=== PATIENT | female | born 1990 | race African-American/Black ===

== ENCOUNTER 2016-05-26 21:00 | Emergency (ER) | payer OTHER ==
[2016-05-26 21:17] VITALS: BP 117/62
[2016-05-26] MEDS ORDERED: Ibuprofen 800 MG Tab PO ONE (21:21)
--- NOTE | 2016-05-26 21:24 | EDM.PDOC ---
ED HPI GI/ABDOMINAL - General Chief Complaint: Abdominal Pain Stated Complaint: HERNIA Time Seen by Provider: 05/26/16 21:19 Source: Reports: Patient History Limitations: Reports: No limitations - History of Present Illness INITIAL COMMENTS - FREE TEXT/NARRATIVE: c/o abd pain h/o c/s x 2 with lower Pfannenstiel incision, moved to [place] from [place], [place] 1y ago, not seen an MD locally says she has a hernia in her upper abd that was "sticking out", her daughter jumped on it, now it is gone tearful, yet has normal PE says she is afraid she will get more anxious - Related Data Allergies/ADRs: Allergies Allergy/AdvReac Type Severity Reaction Status Date / Time No Known Allergies Allergy Verified 05/26/16 21:17 Home Meds: Home Meds Albuterol Sulfate [Albuterol Sulfate HFA] 1 - 2 puff IH Q6HR #1 hfa.aer.ad 07/12 [Rx] Vit#42/FA Cmb#6 [Prena1 Chew Tablet] 1 mg PO BEDTIME 07/12/13 [History] Social & Family History - Tobacco Use Years of Tobacco use: 2 - Alcohol Use Days Per Week of Alcohol Use: 0 - Recreational Drug Use Recreational Drug Use: No ED ROS GENERAL - Review of Systems Review Of Systems: See Below Constitutional: Reports: no symptoms HEENT: Reports: No symptoms Respiratory: Reports: No Symptoms Endocrine: Reports: no symptoms GI/Abdominal: Reports: Abdominal pain : Reports: no symptoms Musculoskeletal: Reports: no symptoms Skin: Reports: no symptoms Neurological: Reports: No Symptoms Psychiatric: Reports: No symptoms Hematologic/Lymphatic: Reports: no symptoms Immunologic: Reports: no symptoms ED EXAM, GI/ABD - Physical Exam Exam: See Below Exam Limited By: No limitations General Appearance: alert, WD/WN, no apparent distress GI/Abdominal: other (soft, inc'd adipose tissue, stretch figueredo, no scars in upper abd, no swell, no ecchymosis, no defect in muscle, nl contour, no localized tender) Course - Vital Signs Last Recorded V/S: Last Vital Signs Temp 36.3 C 05/26/16 21:11 Pulse 70 05/26/16 21:11 Resp 14 05/26/16 21:11 BP 117/62 05/26/16 21:11 Pulse Ox 100 04/17/17 21:11 Departure - Departure Time of Disposition: 21:21 Disposition: Home, Self-Care 01 Condition: good Clinical Impression: Abdominal pain Forms: ED Department Discharge Additional Instructions: The muscle is intact. While there may be swelling of the skin or even the adipose layer on occasion, the abdominal muscle is healthy. You may take ibuprofen 200 mg 3 tabs 4 times a day for 2 days as needed for pain and inflammation. Use heat for 15 minutes 4 times a day for 2 days as needed for pain. See a local physician in 2 days for followup and to establish care.
== END 2016-05-26 21:29 | disposition home or self-care (01) ==
LOC: FB.ED 21:00
DX: R10.9 Unspecified abdominal pain (principal)
CPT/HCPCS: 99282; A9270

== ENCOUNTER 2016-11-15 20:48 | Emergency (ER) | payer OTHER ==
[2016-11-15] MEDS ORDERED: Sodium Chloride 0.9% 1,000 ML IV ONE (21:28)
[2016-11-15] MEDS ORDERED: diphenhydrAMINE 50 MG/ML SDV IVPUSH ONE (21:28)
[2016-11-15] MEDS ORDERED: Hydrocortisone Sodium Succinate 100 MG/2 ML SDV IVPUSH ONE (21:29)
[2016-11-15] MEDS ORDERED: Pantoprazole 40 MG Vial IVPUSH ONE (21:29)
[2016-11-15] MEDS ORDERED: hydrOXYzine HCl 25 MG Tab PO ONE (21:30)
[2016-11-15] MEDS ORDERED: methylPREDNISolone Sodium Succinate 125 MG/2 ML SDV ONE (21:40)
[2016-11-15] MEDS ORDERED: Sodium Chloride 0.9% 10 ML Syringe FLUSH PRN (22:39)
[2016-11-15] MEDS ORDERED: EPINEPHrine 1 MG/ML SDV SUBCUT ONE (22:56)
[2016-11-15 23:09] VITALS: BP 141/90
--- NOTE | 2016-11-18 10:24 | ER ---
DATE SEEN: 11/15/2016 TIME SEEN: The patient was seen at 2105 hours. HISTORY OF PRESENT ILLNESS: The patient comes in because she is itching. Something has triggered her itching. She had shrimp at home and feels that is the cause of it. The patient denies shortness of breath. Denies fullness in her throat. Denies abdominal pain, lightheadedness, dizziness, or diaphoresis. PAST MEDICAL HISTORY: The patient has had an umbilical hernia before. She also is obese. Denies asthma. ALLERGIES: No known allergies. REVIEW OF SYSTEMS: HEENT: Negative. CARDIORESPIRATORY: Negative. No history of wheezing, asthma, shortness of breath, or pneumonia. GI: No blood in the stool, black tarry stool, change in bowels, colitis, or Crohn's disease. : Negative. MUSCULOSKELETAL: Negative. No fibromyalgia. NEUROLOGIC: Negative. PHYSICAL EXAMINATION: VITAL SIGNS: Blood pressure 112/50, heart rate 76, respirations 16, oxygen saturation 96%, and temperature is 36.6 degrees centigrade. The patient is 108.8 kg with a BMI of 45.3. SKIN: The patient is constantly itching her forearms. Less itching on abdomen, shoulders, and face, but she has generalized facial pruritus with papules on her face and chest and hives on her chest and more on her forearms. HEENT: PERRLA intact. Pharynx without edema and without hyperemia. No angioedema. Gag in place. NECK: No tracheal deviation. No thyromegaly. LUNGS: Clear to auscultation without rales. No rhonchi. No wheezes. Good air exchange is noted. HEART: S1 and S2. No tachycardia. ABDOMEN: Soft. No guarding. No abdominal discomfort. There is mild increased abdominal girth. EXTREMITIES: Lower extremities without edema. No tenderness of vascular structure. Deep tendon reflexes hypoactive upper and lower extremities, but present. NEUROLOGIC: Cranial nerves 2 through 12 intact. Speech appropriate. No compromise in phonation and speech formation. PLAN: IV Solu-Medrol 125 mg, Benadryl 50 mg, 1:1000, 0.3 mL Epinephrine, Atarax 25 mg p.o., Pantoprazole 40 mg IV, and hydroxyzine 25 mg p.o. Within 15 to 20 minutes, the patient's status markedly improved. She was not itching. She is talking and does not have any problem with communication. No change in lung status. ASSESSMENT: Allergic reaction, probably shrimp, resolving hives. The patient has Medrol Dosepak for allergies and Benadryl and hydroxyzine to diminish the itching if it is recurrent. She has Solu-Medrol also. No topical steroids given. /[id number] DEEPTHI/MARICEL
== END 2016-11-15 23:14 | disposition home or self-care (01) ==
LOC: FB.ED 20:48
DX: T78.40XA Allergy, unspecified, initial encounter (principal)
CPT/HCPCS: 96361; 96372; 96374; 96375; 99283; A9270; C9113; J0171; J1200; J1720; J7040; J7050

== ENCOUNTER 2018-03-03 17:31 | Emergency (ER) | payer MEDICAID ==
[2018-03-03] MEDS ORDERED: Sodium Chloride 0.9% 1,000 ML IV ONE (18:29)
[2018-03-03] MEDS ORDERED: Ketorolac 30 MG/ML SDV IVPUSH ONE (18:29)
[2018-03-03] MEDS ORDERED: Morphine 2 MG/ML Syringe IVPUSH ONE (18:29)
[2018-03-03] MEDS ORDERED: Ondansetron 4 MG/2 ML SDV IVPUSH ONE (18:29)
--- NOTE | 2018-03-03 18:36 | EDM.PDOC ---
ED HPI GENERAL MEDICAL PROBLEM - General Chief Complaint: Abdominal Pain Stated Complaint: ABD PAIN Time Seen by Provider: 03/03/18 18:15 Source of Information: Reports: Patient History Limitations: Reports: No Limitations - History of Present Illness INITIAL COMMENTS - FREE TEXT/NARRATIVE: c/o abd pain x 1h not eaten bfast or lunch, slight nausea today, went to [employer] at 4p, at 4:30p she had pain above her umbilicus, went to bathroom and had emesis pain persisted, sent here says she has an umbilical hernia that she has pushed back in previously, unable to do so now thinks it is an umbilical hernia from what she has read in the internet altho umbilicus appears WNL, says she has told her PCP Dr Blair about this altho has not had a bulge when in his office no prior abd surgery no f/c/d points to pain above umbilicus Middle Abdomen Pain Score (Numeric/FACES): 8 - Related Data Allergies Allergy/AdvReac Type Severity Reaction Status Date / Time No Known Allergies Allergy Verified 03/03/18 18:04 Home Meds: Home Meds NK [No Known Home Meds] 03/03/18 [History] Past Medical History Respiratory History: Reports: Asthma Gastrointestinal History: Reports: Other (See Below) Other Gastrointestinal History: c-sections Genitourinary History: Reports: None RESIDENTIAL [employer]IST History: Reports: Other [employer]IDENTIAL [employer]IST History: Psychiatric History: Reports: Anxiety Endocrine/Metabolic History: Reports: Obesity/BMI 30+ Hematologic History: Reports: Anemia - Infectious Disease History Infectious Disease History: Reports: Chicken Pox - Past Surgical History GI Surgical History: Reports: Hernia, Abdominal Female Surgical History: Reports: Section Other Female Surgeries/Procedures: CS x 3 Social & Family History - Family History Family Medical History: Noncontributory - Tobacco Use Smoking Status *Q: Current Every Day Smoker Years of Tobacco use: 5 Packs/Tins Daily: 0.5 - Caffeine Use Caffeine Use: Reports: Coffee, Energy Drinks, Soda, Tea - Recreational Drug Use Recreational Drug Use: No ED ROS GENERAL - Review of Systems Review Of Systems: See Below Constitutional: Reports: No Symptoms HEENT: Reports: No Symptoms Respiratory: Reports: No Symptoms Cardiovascular: Reports: No Symptoms Endocrine: Reports: No Symptoms GI/Abdominal: Reports: Abdominal Pain, Nausea, Vomiting : Reports: No Symptoms Musculoskeletal: Reports: No Symptoms Skin: Reports: No Symptoms Neurological: Reports: No Symptoms Psychiatric: Reports: No Symptoms Hematologic/Lymphatic: Reports: No Symptoms Immunologic: Reports: No Symptoms ED EXAM, GI/ABD - Physical Exam Exam: See Below Exam Limited By: No Limitations General Appearance: Alert, WD/WN, Moderate Distress, Other (tearful) Ears: Normal External Exam Nose: Normal Inspection, Normal Mucosa, No Blood Throat/Mouth: Normal Inspection, Normal Lips, Normal Voice, No Airway Compromise Head: Atraumatic, Normocephalic Neck: Normal Inspection, Supple, Non-Tender, Full Range of Motion. No: Lymphadenopathy (R), Lymphadenopathy (L) Respiratory/Chest: No Respiratory Distress, Lungs Clear, Normal Breath Sounds, Chest Non-Tender Cardiovascular: Regular Rate, Rhythm, No Edema, No Gallop, No Murmur GI/Abdominal Exam: Other (mild subc fullness of 10 x 10 x 5 cm above umbilicus, not hard, has 1-2+ tender, BS x 4, no rushes, perhaps a little dec'd, no guard, no rebound, umbilicus is WNL without bulge or tender or red) Neurological: Alert, Oriented, CN II-XII Intact, Normal Cognition, No Motor/ Sensory Deficits Psychiatric: Tearful Skin Exam: Warm, Dry, Intact, Normal Color, No Rash Lymphatic: No Adenopathy Course - Vital Signs Last Recorded V/S: Last Vital Signs Temp 36.9 C 03/03/18 18:00 Pulse 64 03/03/18 18:00 Resp 18 03/03/18 18:00 BP 132/77 03/03/18 18:00 Pulse Ox 100 03/03/18 18:00 - Orders/Labs/Meds Orders: Active Orders 24 hr Category Date Time Status UA W/MICROSCOPIC [URIN] Stat Lab 03/03/18 19:35 Received Labs: Laboratory Tests 03/03/18 03/03/18 03/03/18 Range/Units 18:35 18:35 18:35 WBC 8.9 (4.5-12.0) X10-3/uL RBC 4.24 (3.23-5.20) x10(6)uL Hgb 12.7 (11.5-15.5) g/dL Hct 36.4 (30.0-51.3) % MCV 86.0 (80-96) fL MCH 30.0 (27.7-33.6) pg MCHC 34.8 (32.2-35.4) g/dL RDW 12.5 (11.5-15.5) % Plt Count 384 H (125-369) X10(3)uL MPV 7.8 (7.4-10.4) fL Add Manual Diff Yes Neutrophils % (Manual) 73 (46-82) % Band Neutrophils % 1 (0-6) % Lymphocytes % (Manual) 24 (13-37) % Monocytes % (Manual) 2 L (4-12) % Sodium 137 (135-145) mmol/L Potassium 3.8 (3.5-5.3) mmol/L Chloride 105 (100-110) mmol/L Carbon Dioxide 28 (21-32) mmol/L BUN 8 (7-18) mg/dL Creatinine 0.8 (0.55-1.02) mg/dL Est Cr Clr Drug Dosing 80.41 mL/min Estimated GFR (MDRD) > 60 (>60) BUN/Creatinine Ratio 10.0 (9-20) Glucose 106 (80-116) mg/dL Calcium 8.9 (8.6-10.2) mg/dL Total Bilirubin 0.3 (0.1-1.3) mg/dL AST 14 (5-25) IU/L ALT 20 (12-36) U/L Alkaline Phosphatase 77 (56-112) IU/L C-Reactive Protein 2.5 H (0.5-0.9) mg/dL Total Protein 7.7 (6.0-8.0) g/dL Albumin 3.3 L (3.5-5.2) g/dL Globulin 4.4 g/dL Albumin/Globulin Ratio 0.8 Amylase 65 (25-115) U/L Urine HCG, Qual (NEGATIVE) 03/03/18 Range/Units 19:35 WBC (4.5-12.0) X10-3/uL RBC (3.23-5.20) x10(6)uL Hgb (11.5-15.5) g/dL Hct (30.0-51.3) % MCV (80-96) fL MCH (27.7-33.6) pg MCHC (32.2-35.4) g/dL RDW (11.5-15.5) % Plt Count (125-369) X10(3)uL MPV (7.4-10.4) fL Add Manual Diff Neutrophils % (Manual) (46-82) % Band Neutrophils % (0-6) % Lymphocytes % (Manual) (13-37) % Monocytes % (Manual) (4-12) % Sodium (135-145) mmol/L Potassium (3.5-5.3) mmol/L Chloride (100-110) mmol/L Carbon Dioxide (21-32) mmol/L BUN (7-18) mg/dL Creatinine (0.55-1.02) mg/dL Est Cr Clr Drug Dosing mL/min Estimated GFR (MDRD) (>60) BUN/Creatinine Ratio (9-20) Glucose (80-116) mg/dL Calcium (8.6-10.2) mg/dL Total Bilirubin (0.1-1.3) mg/dL AST (5-25) IU/L ALT (12-36) U/L Alkaline Phosphatase (56-112) IU/L C-Reactive Protein (0.5-0.9) mg/dL Total Protein (6.0-8.0) g/dL Albumin (3.5-5.2) g/dL Globulin g/dL Albumin/Globulin Ratio Amylase (25-115) U/L Urine HCG, Qual Negative (NEGATIVE) Meds: Medications Discontinued Medications Generic Name Dose Route Start Last Admin Trade Name Freq PRN Reason Stop Dose Admin Sodium Chloride 1,000 mls @ 999 mls/hr 03/03/18 18:29 03/03/18 19:05 Normal Saline IV 03/03/18 19:29 999 mls/hr .BOLUS ONE Administration Ketorolac Tromethamine 30 mg 03/03/18 18:29 03/03/18 19:05 Toradol IVPUSH 03/03/18 18:30 30 mg ONETIME ONE Administration Morphine Sulfate 2 mg 03/03/18 18:29 03/03/18 19:11 Morphine IVPUSH 03/03/18 18:30 2 mg ONETIME ONE Administration Ondansetron HCl 4 mg 03/03/18 18:29 03/03/18 19:06 Zofran IVPUSH 03/03/18 18:30 4 mg ONETIME ONE Administration - Re-Assessments/Exams Free Text/Narrative Re-Assessment/Exam: 03/03/18 19:55 CRP 2.5 for unclear reason, ventral hernia was successfully reduced, appeared to be a ventral hernia and not an umbilical hernia pt reports that it occurred after 2 vaginal deliveries she was hoping that it would go away because it was small, today however was the worst pain and largest size pt would like to avoid surgery altho advised that she would need surgery to keep it from getting bigger and bigger, she did agree reluctantly to see a surgeon she understands that she needs to wear an abdominal binder when working given one from here in ED that it is one foot wide, will have her see if she can get a larger one from medical supply store Departure - Departure Time of Disposition: 19:58 Disposition: Home, Self-Care 01 Condition: Good Clinical Impression: Ventral hernia - Discharge Information *PRESCRIPTION DRUG MONITORING PROGRAM REVIEWED*: Not Applicable *COPY OF PRESCRIPTION DRUG MONITORING REPORT IN PATIENT IVA: Not Applicable Instructions: Ventral Hernia Referrals: Milo Blair MD [Primary Care Provider] - Forms: ED Department Discharge, ED Return to Work/School Form Additional Instructions: While you may have an umbilical hernia that does extent to the skin, it is more likely that you have a ventral hernia, which is separation of the abdominal wall in the midline. Unfortunately, the separation or hole will not heal itself and needs to be closed surgically as it will only continue to get bigger. See a surgeon in the next week for further evaluation. Wear an abdominal binder when you are working. For discomfort, you may take ibuprofen 200 mg 4 tabs 3 times a day as needed. However, if the bulge comes back and you have pain, you will need to come back to the Emergency Department. - My Orders Last 24 Hours: My Active Orders 03/03/18 19:35 UA W/MICROSCOPIC [URIN] Stat - Assessment/Plan Last 24 Hours: My Active Orders 03/03/18 19:35 UA W/MICROSCOPIC [URIN] Stat
[2018-03-03 21:01] VITALS: BP 125/65
== END 2018-03-03 20:15 | disposition home or self-care (01) ==
LOC: FB.ED 17:31
DX: K43.9 Ventral hernia without obstruction or gangrene (principal); F17.210 Nicotine dependence, cigarettes, uncomplicated
CPT/HCPCS: 36415; 80053; 81001; 81025; 82150; 85025; 86140; 96361; 96374; 96375; 99284; J1885; J2270; J2405; J7030

== ENCOUNTER 2018-03-16 06:45 | Day surgery (SDC) | payer MEDICAID ==
[~2018-03-16 06:45] MED LIST: Lactated Ringers 1,000 ML IV SCH
[2018-03-16] MEDS ORDERED: Ondansetron 4 MG/2 ML SDV IVPUSH ONE (06:46)
[2018-03-16] MEDS ORDERED: Ketorolac 30 MG/ML SDV IVPUSH ONE (06:46)
[2018-03-16] MEDS ORDERED: HYDROmorphone 2 MG/ML SDV IV ONE (06:46)
[2018-03-16] MEDS ORDERED: Propofol 200 MG/20 ML SDV IV ONE (06:46)
[2018-03-16] MEDS ORDERED: Midazolam 1 MG/ML 2 ML SDV IV ONE (06:46)
[2018-03-16] MEDS ORDERED: Lactated Ringers 1,000 ML IV ONE (06:46)
[2018-03-16] MEDS ORDERED: fentaNYL 100 MCG/2 ML SDV IV ONE (06:46)
[2018-03-16] MEDS ORDERED: Rocuronium 100 MG/10 ML MDV IV ONE (06:46)
[2018-03-16] MEDS ORDERED: Bupivacaine 0.5% 30 ML SDV ONE (08:20)
[2018-03-16] MEDS ORDERED: Lidocaine 1% with EPINEPHrine 1:100,000 20 ML MDV ONE (08:20)
[2018-03-16] MEDS ORDERED: Acetaminophen/HYDROcodone 325-5 MG Tab PO PRN (08:49)
--- NOTE | 2018-03-16 08:58 | PCM.OPNOTE ---
- General Post-Op/Procedure Note Date of Surgery/Procedure: 03/16/18 Operative Procedure(s): ventral hernia repair with mesh Findings: 2 cm defect midline Pre Op Diagnosis: ventral hernia without obstruction or gangrene Post-Op Diagnosis: Same Anesthesia Technique: General ET Tube, Local (7 ml 1 % lido with epi/0.5% buvipicaine) Primary Surgeon: Helder Gonzalez Anesthesia Provider: Piero Carrasquillo Pathology: none EBL in mLs: 2 Complications: None Condition: Good Free Text/Narrative:: see dictation [id number]
--- NOTE | 2018-03-16 10:16 | OR ---
DATE OF OPERATION: 03/16/2018 SURGEON: Helder Gonzalez MD PROCEDURE PERFORMED: Ventral hernia repair with mesh. PREOPERATIVE DIAGNOSIS: Ventral hernia without obstruction or gangrene. POSTOPERATIVE DIAGNOSIS: Ventral hernia without obstruction or gangrene. INDICATIONS FOR PROCEDURE: This is a 27-year-old black female who is referred with a partially reducible ventral hernia located just above the umbilicus. She was offered and accepted repair. INTRAOPERATIVE FINDINGS: Proximally a 2 cm defect was encountered. This was repaired with a Ventralex ST hernia patch, large wales with strap 8 cm diameter, reference number [id number], lot number [id number] with an expiration date of 01/07/2020 and a total of 7 mL of 1:1 mixture of 1% lidocaine with epinephrine and 0.5% bupivacaine was used. DESCRIPTION OF OPERATION: After an excellent general anesthetic was administered via endotracheal tube, the patient was prepped and draped in usual sterile manner. The planned incision site over the palpable defect was then infiltrated with our local. A sharp midline incision was then made with a #10 scalpel blade. Sharp dissection was used to carry out to dissect around the hernia sac itself. The hernia sac was then entered and the adhesed omentum was carefully dissected free from the inside of the hernia sac, allowing us to reduce it. The defect was enlarged slightly inferiorly to allow us to reduce the omentum. The hernia sac was then transected. Bleeding was controlled with bipolar electrocautery. After stripping away, the fat was adhered to the anterior abdominal wall. The mesh was then inserted into the patient's abdomen after soaking in saline. The several Stat Tacks were used to tack it through the anterior abdominal wall and prevent shifting. The straps were then removed. The midline fascial defect was then closed with a running 0 Prolene. The subcu fat was approximated with a running subcu 3-0 Vicryl and jesus were used to approximate the skin. Needle, sponge, and instrument counts were reported as correct. The patient was taken to recovery room in good condition. /[id number] /MODL
[2018-03-16 11:15] VITALS: BP 137/84
== END 2018-03-16 11:21 | disposition home or self-care (01) ==
LOC: FB.SDS 06:45
PROVIDERS: ATTEND Surgery
DX: K43.9 Ventral hernia without obstruction or gangrene (principal); F17.210 Nicotine dependence, cigarettes, uncomplicated
CPT/HCPCS: 49560; 49568; 81025; A9270; C1781; J0690; J1170; J1885; J2250; J2405; J2704; J3010; J3490; J7030; J7120